=== PATIENT | female | born 1990 | race Two or more races ===

== ENCOUNTER 2016-12-31 01:17 | Emergency (ER) | payer MEDICAID ==
[~2016-12-31] VITALS: Ht 154.9 cm; Wt 63.5 kg
[2016-12-31 01:22] VITALS: BP 126/82
[2016-12-31 01:53] LABS: BASOPHILS % (AUTO) 1.6 % (0.0-2.0); MEAN CORPUSCULAR HEMOGLOBIN 29.3 PG (27.0-31.0); MEAN CORPUSCULAR HGB CONC 32.9 G/DL (32.0-36.0); MEAN CORPUSCULAR VOLUME 89 FL (80-99); MEAN PLATELET VOLUME 6.5 FL (6.5-10.1); MONOCYTES % (AUTO) 8.4 % (1.0-10.0); NEUTROPHILS % (AUTO) 63.9 % (45.0-75.0); PLATELET COUNT 337 K/UL (150-450); RED BLOOD COUNT 4.69 M/UL (4.20-5.40); RED CELL DISTRIBUTION WIDTH 11.3 % (11.6-14.8); WHITE BLOOD COUNT 9.9 K/UL (4.8-10.8)
[2016-12-31 01:55] LABS: APPEARANCE,URINE CLEAR; KETONES,URINE NEGATIVE (NEGATIVE); LEUKOCYTE ESTERASE ,URINE 1+ (NEGATIVE); NITRITE,URINE NEGATIVE (NEGATIVE); PH,URINE 5 (4.5-8.0); PROTEIN,URINE NEGATIVE (NEGATIVE); UROBILINOGEN,URINE NORMAL MG/DL (0.0-1.0)
[2016-12-31 02:10] LABS: ACETAMINOPHEN < 10 ug/mL (10-30); ALANINE AMINOTRANSFERASE 18 U/L (3-33); ALBUMIN/GLOBULIN RATIO 1.4 (1.0-2.7); ALCOHOL 137 mg/dL; ANION GAP 17 (5-15); ASPARTATE AMINO TRANSFERASE 23 U/L (5-40); CALCIUM 9.4 mg/dL (8.6-10.2); CARBON DIOXIDE 20 mEQ/L (20-30); CHLORIDE 105 mEQ/L (98-107); CREATININE 0.8 mg/dL (0.5-0.9); GLOMERULAR FILTRATION RATE > 60 mL/min (>60); HEMOLYSIS 10; POTASSIUM 3.4 mEQ/L (3.4-4.9); SODIUM 142 mEQ/L (135-145); TOTAL PROTEIN 7.7 g/dL (6.6-8.7)
[2016-12-31] MEDS ORDERED: Bacitracin Oint UD TOPIC ONE (03:00)
[2016-12-31 03:03] LABS: BACTERIA,URINE OCCASIONAL /HPF; RBC,URINE 0-2 /HPF (0 - 2); SQUAMOUS EPITHELIAL CELL,UR FEW /LPF (NONE/OCC); WBC,URINE 0-2 /HPF (0 - 2)
[2016-12-31 03:22] VITALS: BP 108/70
--- NOTE | 2016-12-31 04:15 | Emergency Room Report ---
History of Present Illness General Chief Complaint: Laceration Source: Friend Present Illness HPI Patient brought by friends. She was drinking earlier tonight and stubbed her toe. The nail almost completely came off. After this she had a lot of pain and bleeding and passed out.. They carried her into the emergency department. They deny head trauma. She has not been vomiting. They don't think she's . They deny major medical problems. No other history is available. Allergies: Coded Allergies: UNABLE TO ASSESS (Unverified , 12/31/16) Patient History Past Medical History: see triage record Social History: Reports: alcohol use Social History Narrative with friends Now: No Reviewed Nursing Documentation: PMH: Agreed, PSxH: Agreed Nursing Documentation-PMH Past Medical History Deferred: Pt Cognitively Impaired Review of Systems All Other Systems: limited Physical Exam Vital Signs Date Time Temp Pulse Resp B/P Pulse Ox O2 Delivery O2 Flow Rate FiO2 12/31/16 01:19 112 24 126/82 97 Room Air Sp02 EP Interpretation: reviewed, normal General Appearance: lethargic, other - alcohol on breath Head: normocephalic Eyes: bilateral eye PERRL, bilateral eye Scleral Injection ENT: moist mucus membranes, other - + gag Neck: supple Respiratory: lungs clear, normal breath sounds Cardiovascular #1: regular rate, rhythm Cardiovascular #2: 2+ radial (L), 2+ dorsalis pedis (L) - good cap fill Gastrointestinal: normal inspection, non tender, no mass, non-distended, abnormal bowel sounds - decreased Musculoskeletal: back normal, other - L great toe with partially avulsed nail Neurologic: sensory intact, other - withdraws from pain, not verbalize, eyes closed Psychiatric: other - stupor Reflexes: 1+ knee (R), 1+ knee (L) Skin: warm/dry, other - old blood on toe Procedures Laceration/Wound Repair Laceration/Wound Repair : Consent: Verbal Wound Location: other - R great toe Wound's Depth, Shape: contused tissue, other - partially avulsed nail Wound Explored: foreign body removed - feet dirty Betadine Prep?: Yes Anesthesia: 1% Lidocaine, other - digital block Volume Anesthetic (ccs): 5 Wound Debrided: moderate Sterile Dressing Applied?: Yes Splint Applied?: No - tube gauze Patient Tolerated: Well Complications: None Progress no sutures used. Bleeding was from avulsed nail, not deep, controlled. Cleaned and dressed after nail removed. Medical Decision Making Diagnostic Impression: Primary Impression: Toenail avulsion Qualified Codes: S91.209A - Unspecified open wound of unspecified toe(s) with damage to nail, initial encounter Additional Impressions: Toe fracture Qualified Codes: S92.422A - Displaced fracture of distal phalanx of left great toe, initial encounter for closed fracture Alcohol intoxication Qualified Codes: F10.929 - Alcohol use, unspecified with intoxication, unspecified ER Course Patient presents with either syncope or decreased responsiveness with toe injury. Ddx: alcohol intoxication, electrolyte imbalance, other ingestion. No evidence of head injury - doubt bleed. Toe ddx: fx, avulsed nail, contusion amongst others. Gag present, airway protected. Emergent evaluation with labs, CXR, toe Xray, EKG. Treatment with IV hydration, cardiac monitoring. Toe will need to be treated, however, we need to stabilize patient. CXR negative. Labs with elevated BA. Mentation improving. Toenail removed. Tolerated well. Ambulatory. States was drinking to celebrate her child's confirmation. Patient stable for outpatient observation and treatment. Laboratory Tests Test 12/31/16 01:25 White Blood Count 9.9 K/UL (4.8-10.8) Red Blood Count 4.69 M/UL (4.20-5.40) Hemoglobin 13.8 G/DL (12.0-16.0) Hematocrit 41.9 % (37.0-47.0) Mean Corpuscular Volume 89 FL (80-99) Mean Corpuscular Hemoglobin 29.3 PG (27.0-31.0) Mean Corpuscular Hemoglobin Concent 32.9 G/DL (32.0-36.0) Red Cell Distribution Width 11.3 % (11.6-14.8) L Platelet Count 337 K/UL (150-450) Mean Platelet Volume 6.5 FL (6.5-10.1) Neutrophils (%) (Auto) 63.9 % (45.0-75.0) Lymphocytes (%) (Auto) 25.0 % (20.0-45.0) Monocytes (%) (Auto) 8.4 % (1.0-10.0) Eosinophils (%) (Auto) 1.0 % (0.0-3.0) Basophils (%) (Auto) 1.6 % (0.0-2.0) Urine Color Pale yellow Urine Appearance Clear Urine pH 5 (4.5-8.0) Urine Specific [place] 1.010 (1.005-1.035) Urine Protein Negative (NEGATIVE) Urine Glucose (UA) Negative (NEGATIVE) Urine Ketones Negative (NEGATIVE) Urine Occult Blood Negative (NEGATIVE) Urine Nitrite Negative (NEGATIVE) Urine Bilirubin Negative (NEGATIVE) Urine Urobilinogen Normal MG/DL (0.0-1.0) Urine Leukocyte Esterase 1+ (NEGATIVE) H Urine RBC 0-2 /HPF (0 - 2) Urine WBC 0-2 /HPF (0 - 2) Urine Squamous Epithelial Cells Few /LPF (NONE/OCC) Urine Bacteria Occasional /HPF (NONE) Urine HCG, Qualitative Negative Sodium Level 142 mEQ/L (135-145) Potassium Level 3.4 mEQ/L (3.4-4.9) Chloride Level 105 mEQ/L (98-107) Carbon Dioxide Level 20 mEQ/L (20-30) Anion Gap 17 (5-15) H Blood Urea Nitrogen 14 mg/dL (7-23) Creatinine 0.8 mg/dL (0.5-0.9) Estimate Glomerular Filtration Rate > 60 mL/min (>60) Glucose Level 98 mg/dL (74-106) Calcium Level 9.4 mg/dL (8.6-10.2) Total Bilirubin 0.2 mg/dL (0.0-1.2) Aspartate Amino Transferase (AST) 23 U/L (5-40) Alanine Aminotransferase (ALT) 18 U/L (3-33) Alkaline Phosphatase 92 U/L (35-104) Total Protein 7.7 g/dL (6.6-8.7) Albumin 4.5 g/dL (3.5-5.2) Globulin 3.2 g/dL Albumin/Globulin Ratio 1.4 (1.0-2.7) Salicylates Level < 1 mg/dL (10-30) L Urine Opiates Screen Negative (NEGATIVE) Acetaminophen Level < 10 ug/mL (10-30) L Urine Barbiturates Screen Negative (NEGATIVE) Phencyclidine (PCP) Screen Negative (NEGATIVE) Urine Amphetamines Screen Negative (NEGATIVE) Urine Benzodiazepines Screen Negative (NEGATIVE) Urine Cocaine Screen Negative (NEGATIVE) Urine Marijuana (THC) Screen Negative (NEGATIVE) Serum Alcohol 137 mg/dL EKG Diagnostic Results Rate: tachycardiac ST Segments: no acute changes Rhythm Strip Diag. Results EP Interpretation: yes Rhythm: no PVC's, no ectopy, other - ST Chest X-Ray Diagnostic Results Chest X-Ray Diagnostic Results : Chest X-Ray Ordered: Yes Indication: Other EP Interpretation: Yes Interpretation: no consolidation, no effusion, no pneumothorax, no acute cardiopulmonary disease Impression: No acute disease Interpreting ER Provider: Electronically signed by Kalpesh Brasher MD Other X-Ray Diagnostic Results Other X-Ray Diagnostic Results : X-Ray ordered: Left foot # of Views/Limited Vs Complete: 3 View Indication: Pain EP Interpretation: Yes Interpretation: no dislocation, other - fx and ST changes Impression: Other Interpreting ER Provider: Electronically signed by Kalpesh Brasher MD Last Vital Signs Date Time Temp Pulse Resp B/P Pulse Ox O2 Delivery O2 Flow Rate FiO2 12/31/16 06:13 98.1 85 16 109/67 100 Room Air Status: improved Disposition: HOME, SELF-CARE - with friends Condition: Improved Scripts Ibuprofen* (MOTRIN*) 600 Mg Tablet 600 MG ORAL Q6H Y for For Pain, #20 TAB Prov: Kalpesh Brasher M.D. 12/31/16 Bacitracin (Bacitracin) 28.4 Gm Oint...g. 1 APPLIC TOPIC BID, #10 GM Prov: Kalpesh Brasher M.D. 12/31/16 Referrals: NOT CHOSEN TERESO/,REFERRING (PCP) Kalpesh Brasher M.D. Dec 31, 2016 04:15
[2016-12-31] MEDS ORDERED: BACITRACIN15 GM TOPIC (04:20)
[2016-12-31] MEDS ORDERED: IBUPROFEN600 MG ORAL (04:20)
[2016-12-31 05:22] VITALS: BP 114/74
[2016-12-31 06:13] VITALS: BP 109/67
--- NOTE | 2016-12-31 09:10 | Diagnostic Imaging Report ---
Indication: Left foot trauma Technique: XRAY FOOT MIN 3V LEFT Comparison: None Findings: There is apparent soft tissue injury of the first digit. There is a linear density adjacent to the tuft of the first distal phalanx. Otherwise no acute fracture is identified. Impression: Apparent soft tissue injury of the first digit. Linear density adjacent to the tuft of the first distal phalanx on some of the views may be secondary to overlying soft tissue artifact but the possibility of a subtle tuft fracture is not excluded. Followup recommended as indicated.
--- NOTE | 2016-12-31 09:12 | Diagnostic Imaging Report ---
Indication: Chest pain Technique: XRAY CHEST 1 V Comparison: None Findings: There is poor inspiration with bronchovascular crowding. Cardiomediastinal silhouette is within normal limits. There is no gross consolidation or pleural effusion. Osseous structures demonstrate no acute abnormality. Impression: Poor inspiration with bronchovascular crowding. Otherwise no obvious acute cardiopulmonary disease. Followup recommended as indicated.
--- NOTE | 2017-01-03 17:05 | Cardiology Report ---
APPROVED REPORT EKG Measurement Heart [id number] Sinus tachycardia Otherwise normal ECG
== END 2016-12-31 06:13 | disposition home or self-care (01) ==
LOC: EMR 01:27
DX: S91.209A Unspecified open wound of unspecified toe(s) with damage to nail, initial encounter (principal); S92.422A Displaced fracture of distal phalanx of left great toe, initial encounter for closed fracture; F10.929 Alcohol use, unspecified with intoxication, unspecified; W22.09XA Striking against other stationary object, initial encounter; Y92.9 Unspecified place or not applicable
CPT/HCPCS: 11730; 36415; 71010; 73630; 80053; 80300; 80329; 81003; 81025; 82962; 85025; 93005; 96360; 96361; 99284; Z7502